=== PATIENT | male | born 1980 | race African-American/Black ===

== ENCOUNTER 2017-12-07 11:39 | Observation (INO) | payer SELFPAY ==
[2017-12-07] MEDS ORDERED: KETOROLAC TROMETHAMINE 60 MG/2 ML SDV IM ONE (12:31)
--- NOTE | 2017-12-07 12:33 | ER Document Report ---
ED Medical Screen (RME) - General Chief Complaint: Abdominal Swelling Stated Complaint: ABDOMINAL PAIN Time Seen by Provider: 12/07/17 12:31 Mode of Arrival: Ambulatory Information source: Patient Notes: This is a 37-year-old man who presents to the emergency room with chest wall pain and muscle aches and pains. 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 He states he has felt like his muscles have been locking up and he had some pain in his abdomen which precipitated him coming to the ER for evaluation today. Currently, he denies any nausea or abdominal pain. He does complain of muscle aches and pains. He denies any fever, near syncope, blood in the stool, shortness of breath. TRAVEL OUTSIDE OF THE [place] IN LAST 30 DAYS: No - Related Data Allergies/Adverse Reactions: No Known Allergies Allergy (Verified 12/07/17 11:43) Past Medical History - Social History Chew tobacco use (# tins/day): No Frequency of alcohol use: None Drug Abuse: None Pulmonary Medical History: Reports: Hx Asthma Renal/ Medical History: Denies: Hx Peritoneal Dialysis Psychiatric Medical History: Reports: Hx Anxiety, Hx Depression - anxiety - Immunizations Hx Diphtheria, Pertussis, Tetanus Vaccination: Yes - unknown Review of Systems - Review of Systems Notes: Review of systems: Constitutional: Denies fever, chills. EENT: Denies ear pain, sinus tenderness, throat pain, throat swelling. Cardiovascular: Denies chest pain, palpitations, dyspnea or edema. Respiratory: Denies wheezing, cough, hemoptysis. Abdomen: See H&P Genitourinary: Denies dysuria, pyuria, hematuria, flank pain. Musculoskeletal: See H&P Neurologic: Denies headache, photophobia, neck stiffness, weakness. Denies loss of bowel or bladder function. Denies saddle anesthesia. Skin: Denies rash, lesions. Physical Exam - Vital signs Vitals: Temp Pulse Resp BP Pulse Ox 98.7 F 91 16 124/86 H 100 12/07/17 11:51 12/07/17 11:51 12/07/17 11:51 12/07/17 11:51 02/16/18 11:51 Notes: Physical exam: GENERAL: 87-year-old man, alert and oriented 3, no acute distress HEAD: Atraumatic, normocephalic. EYES: Pupils equal round and reactive to light, extraocular movements intact, sclera anicteric, conjunctiva are normal. ENT: TMs normal, nares patent, oropharynx clear without exudates. Moist mucous membranes. NECK: Normal range of motion, supple without obvious mass or JVD. LUNGS: Breath sounds clear to auscultation bilaterally and equal. No wheezes rales or rhonchi. HEART: Regular rate and rhythm without murmurs, rubs or gallops. ABDOMEN: Soft, normoactive bowel sounds. No tenderness to palpation. No guarding, no rebound. No masses appreciated. EXTREMITIES: Normal range of motion, no pitting or edema. No clubbing or cyanosis. NEUROLOGICAL: Cranial nerves II through XII grossly intact. Normal speech, moving all extremities. PSYCH: Normal mood, normal affect. SKIN: Warm, Dry, normal turgor, no rashes or lesions noted. Course - Vital Signs Vital signs: Temp Pulse Resp BP Pulse Ox 98.7 F 91 16 124/86 H 100 12/07/17 11:51 12/07/17 11:51 12/07/17 11:51 12/07/17 11:51 12/07/17 11:51 - Laboratory Result Diagrams: 12/07/17 13:27 12/07/17 13:27 Laboratory results interpreted by me: 12/07/17 12/07/17 13:27 13:27 RBC 5.76 H RDW 14.8 H Sodium 132.4 L Chloride 94 L BUN 35 H Creatinine 1.94 H Est GFR ( Amer) 47 L Est GFR (Non-Af Amer) 39 L Calcium 10.7 H Direct Bilirubin 0.6 H AST 139 H Creatine Kinase 5564 H Total Protein 9.1 H Albumin 5.4 H Doctor's Discharge - Discharge Clinical Impression: Rhabdomyolysis, Acute kidney injury Condition: Stable Disposition: ADMITTED INPATIENT
--- NOTE | 2017-12-07 13:53 | RADIOLOGY REPORT (SQ) ---
EXAM DESCRIPTION: CHEST PA/LAT COMPLETED DATE/TIME: 12/07/2017 1:35 pm REASON FOR STUDY: chest wall pain COMPARISON: 08/11/2013 EXAM PARAMETERS: NUMBER OF VIEWS: two views TECHNIQUE: Digital Frontal and Lateral radiographic views of the chest acquired. RADIATION DOSE: NA LIMITATIONS: none FINDINGS: LUNGS AND PLEURA: No opacities, masses or pneumothorax. No pleural effusion. MEDIASTINUM AND HILAR STRUCTURES: No masses or contour abnormalities. HEART AND VASCULAR STRUCTURES: Heart normal size. No evidence for failure. BONES: No acute findings. HARDWARE: None in the chest. OTHER: No other significant finding. IMPRESSION: NO SIGNIFICANT RADIOGRAPHIC FINDING IN THE CHEST. TECHNICAL DOCUMENTATION: JOB ID: [id number] [employer] All Rights Reserved
[2017-12-07 13:56] LABS: ALANINE AMINOTRANSFERASE 66 U/L (21-72); ALBUMIN 5.4 g/dL (3.5-5.0); ALKALINE PHOSPHATASE 89 U/L (38-126); ANION GAP 15 (5-19); ASPARTATE AMINO TRANSFERASE 139 U/L (17-59); BILIRUBIN,DIRECT 0.6 mg/dL (0.0-0.4); BILIRUBIN,TOTAL 1.3 mg/dL (0.2-1.3); BLOOD UREA NITROGEN 35 mg/dL (7-20); CALCIUM 10.7 mg/dL (8.4-10.2); CARBON DIOXIDE 23 mmol/L (22-30); CHLORIDE 94 mmol/L (98-107); GLUCOSE 100 mg/dL (75-110); POTASSIUM 3.9 mmol/L (3.6-5.0); SODIUM 132.4 mmol/L (137-145); TOTAL PROTEIN 9.1 g/dL (6.3-8.2)
[2017-12-07 14:31] LABS: CREATINE KINASE 5564 U/L (55-170)
[2017-12-07 14:59] LABS: ABSOLUTE LYMPHOCYTES (AUTO) 2.2 10^3/uL (0.5-4.7); ABSOLUTE MONOCYTES (AUTO) 0.7 10^3/uL (0.1-1.4); ABSOLUTE NEUT (AUTO) 5.2 10^3/uL (1.7-8.2); BASOPHILS % (AUTO) 0.4 % (0-2); EOSINOPHILS % (AUTO) 0.2 % (0-6); HEMATOCRIT 47.1 % (37.9-51.0); HEMOGLOBIN 15.9 g/dL (13.5-17.0); LYMPHOCYTES % (AUTO) 26.7 % (13-45); MEAN CORPUSCULAR HEMOGLOBIN 27.7 pg (27.0-33.4); MEAN CORPUSCULAR HGB CONC 33.8 g/dL (32.0-36.0); MEAN CORPUSCULAR VOLUME 82 fl (80-97); MONOCYTES % (AUTO) 9.1 % (3-13); PLATELET COUNT 193 10^3/uL (150-450); RED BLOOD COUNT 5.76 10^6/uL (4.35-5.55); RED CELL DISTRIBUTION WIDTH 14.8 % (11.5-14.0); SEGMENTED NEUTROPHILS % (AUTO) 63.6 % (42-78); TOTAL CELLS COUNTED % (AUTO) 100 %; WHITE BLOOD COUNT 8.2 10^3/uL (4.0-10.5)
[2017-12-07] MEDS: RINGERS SOLUTION,LACTATED 1,000 ML IV PRN ×2 (15:02→16:26)
--- NOTE | 2017-12-07 15:18 | ER Document Report ---
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 He states that he has been at the job 11 hours each day for the past 3 days and is been profusely sweating. He presents today with intermittent abdominal wall muscle spasms, musculoskeletal myalgias. He denies chest pain, shortness of breath. He denies nausea or vomiting. He denies fever. TRAVEL OUTSIDE OF THE [place] IN LAST 30 DAYS: No - HPI Onset: Just prior to arrival Onset/Duration: Gradual Quality of pain: Burning, Dull Severity: Moderate Pain Level: 1 Associated symptoms: denies: Chest pain, Fever, Shortness of breath Exacerbated by: Denies Relieved by: Denies Similar symptoms previously: No Recently seen / treated by doctor: No - Related Data Allergies/Adverse Reactions: No Known Allergies Allergy (Verified 12/07/17 11:43) Past Medical History - General Information source: Patient - Social History Smoking Status: Current Every Day Smoker Cigarette use (# per day): Yes - Half pack per day Chew tobacco use (# tins/day): No Frequency of alcohol use: None Drug Abuse: None Lives with: Family Family History: None Patient has suicidal ideation: No Patient has homicidal ideation: No Pulmonary Medical History: Reports: Hx Asthma Renal/ Medical History: Denies: Hx Peritoneal Dialysis Psychiatric Medical History: Reports: Hx Anxiety, Hx Depression - anxiety Surgical Hx: Negative - Immunizations Hx Diphtheria, Pertussis, Tetanus Vaccination: Yes - unknown Review of Systems - Review of Systems Notes: Review of systems: Constitutional: Denies fever, chills. EENT: Denies ear pain, sinus tenderness, throat pain, throat swelling. Cardiovascular: Denies chest pain, palpitations, dyspnea or edema. Respiratory: Denies wheezing, cough, hemoptysis. Abdomen: Positive for abdominal wall spasms. Denies abdominal pain, nausea, vomiting, diarrhea. Denies BRBPR or melena. Genitourinary: Denies dysuria, pyuria, hematuria, flank pain. Musculoskeletal: See H&P Neurologic: Denies headache, photophobia, neck stiffness, weakness. Denies loss of bowel or bladder function. Denies saddle anesthesia. Skin: Denies rash, lesions. Physical Exam - Vital signs Vitals: Temp Pulse Resp BP Pulse Ox 98.7 F 91 16 124/86 H 100 12/07/17 11:51 12/07/17 11:51 12/07/17 11:51 12/07/17 11:51 12/07/17 11:51 Notes: Physical exam: GENERAL: 37-year-old man, alert and oriented 3, no acute distress HEAD: Atraumatic, normocephalic. EYES: Pupils equal round and reactive to light, extraocular movements intact, sclera anicteric, conjunctiva are normal. ENT: TMs normal, nares patent, oropharynx clear without exudates. Moist mucous membranes. NECK: Normal range of motion, supple without obvious mass or JVD. LUNGS: Breath sounds clear to auscultation bilaterally and equal. No wheezes rales or rhonchi. HEART: Regular rate and rhythm without murmurs, rubs or gallops. ABDOMEN: Soft, normoactive bowel sounds. No tenderness to palpation. No guarding, no rebound. No masses appreciated. EXTREMITIES: Normal range of motion, no pitting or edema. No clubbing or cyanosis. NEUROLOGICAL: Cranial nerves II through XII grossly intact. Normal speech, moving all extremities. PSYCH: Normal mood, normal affect. SKIN: Warm, Dry, normal turgor, no rashes or lesions noted. Course - Re-evaluation Re-evalutation: 12/07/17 15:32 Note: Patient was given Toradol on arrival for diffuse muscle pains. Follow-up labs do show some rhabdo, the plan would be to hold all nonsteroidals at this point. He is being treated with IV fluids. He does get some Ativan for muscle spasms. He could be treated with narcotics for pain if needed. The plan is to get an ultrasound of the kidneys and we are waiting for urine analysis. He will be brought into the hospital for rhabdomyolysis. - Vital Signs Vital signs: Temp Pulse Resp BP Pulse Ox 98.7 F 91 16 124/86 H 100 12/07/17 11:51 12/07/17 11:51 12/07/17 11:51 12/07/17 11:51 12/07/17 11:51 - Laboratory Result Diagrams: 12/07/17 13:27 12/07/17 13:27 Laboratory results interpreted by me: 12/07/17 12/07/17 13:27 13:27 RBC 5.76 H RDW 14.8 H Sodium 132.4 L Chloride 94 L BUN 35 H Creatinine 1.94 H Est GFR ( Amer) 47 L Est GFR (Non-Af Amer) 39 L Calcium 10.7 H Direct Bilirubin 0.6 H AST 139 H Creatine Kinase 5564 H Total Protein 9.1 H Albumin 5.4 H - Diagnostic Test Radiology reviewed: Image reviewed, Reports reviewed - Chest x-ray shows no infiltrates or effusions Discharge - Discharge Clinical Impression: Rhabdomyolysis, Acute kidney injury Condition: Stable Disposition: ADMITTED INPATIENT Admitting Provider: Hospitalist - Dr Salmon Unit Admitted: Medical Floor
[2017-12-07] MEDS ORDERED: LORAZEPAM INJ 2 MG/1 ML VIAL IV ONE (15:20)
[2017-12-07 16:20] LABS: APPEARANCE,URINE SLIGHTLY-CLOUDY; BILIRUBIN,URINE NEGATIVE (NEGATIVE); COLOR,URINE YELLOW; GLUCOSE, URINE NEGATIVE (NEGATIVE); KETONES,URINE 20 mg/dL (NEGATIVE); LEUKOCYTE ESTERASE,URINE NEGATIVE (NEGATIVE); NITRITE,URINE NEGATIVE (NEGATIVE); PROTEIN,URINE NEGATIVE (NEGATIVE); URINE SPECIFIC GRAVITY 1.015
[2017-12-07] MEDS ORDERED: OXYCODONE-ACETAMINOPHEN 5-325 MG TABLET PO PRN (16:24)
[2017-12-07] MEDS ORDERED: RINGERS SOLUTION,LACTATED 1,000 ML IV PRN (16:24)
[2017-12-07] MEDS ORDERED: IPRATROPIUM/ALBUTEROL 0.5-2.5 MG/3 ML AMPUL NEB PRN (16:24)
[2017-12-07] MEDS ORDERED: MAG HYDROX/AL HYDROX/SIMETH SUSP 30 ML UDCUP PO PRN (16:24)
--- NOTE | 2017-12-07 16:24 | PDOC H&P ---
History of Present Illness Admission Date/PCP: 12/07/17 15:55 Patient complains of: Abdominal cramping. History of Present Illness: EDOUARD ESCOBEDO is a 37 year old male with no noted past medical history. 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 The work is very labor intensive. He states that he has been sweating profusely. He describes increased thirst over the last 2 days. His urine has gotten darker in color and he is urinating less frequently. He started to develop headache over the last 3-4 days. He describes the headache as a pressure over his temples. He also has some mild pressure in his right ear. The patient started to have abdominal pain and cramping 2 days ago but that got worse this morning. This morning he was doubled over in pain and unable to get up. That is what prompted him to come into the emergency department. He is also had cramping in his legs and arms over the last 2 days. He has not had any vomiting. Of note, the patient did receive Toradol in the emergency department. Past Medical History Pulmonary Medical History: Reports: Asthma Psychiatric Medical History: Reports: Depression - anxiety Past Surgical History Past Surgical History: Reports: None Social History Lives with: Family Smoking Status: Current Every Day Smoker Frequency of Alcohol Use: Rare Hx Recreational Drug Use: Yes Drugs: Marijuana Hx Prescription Drug Abuse: No - Advance Directive Resuscitation Status: Full Code Family History Family History: None Parental Family History Reviewed: Yes Children Family History Reviewed: Yes Sibling(s) Family History Reviewed.: Yes - No relevant family history Medication/Allergy Home Medications: Acyclovir [Acyclovir 400 mg Tablet] 400 mg PO TID #30 tablet 04/13/14 Allergies/Adverse Reactions: No Known Allergies Allergy (Verified 12/07/17 11:43) Review of Systems Constitutional: PRESENT: headache(s), weakness Eyes: ABSENT: as per HPI, visual disturbances, other Ears: PRESENT: as per HPI Nose, Mouth, and Throat: ABSENT: as per HPI, headache(s), mouth pain, sore throat, vertigo, other Breasts: ABSENT: as per HPI, other Cardiovascular: ABSENT: as per HPI, chest pain, dyspnea on exertion, edema, orthropnea, palpitations, other Respiratory: ABSENT: as per HPI, cough, dyspnea, hemoptysis, sputum, other Gastrointestinal: PRESENT: abdominal pain Genitourinary: ABSENT: as per HPI, difficulty urinating, dysuria, hematuria, nocturia, other Musculoskeletal: PRESENT: as per HPI Integumentary: PRESENT: diaphoresis. ABSENT: as per HPI, erythema, lesions, pruritus, rash, wounds, other Neurological: ABSENT: as per HPI, abnormal gait, abnormal movements, abnormal speech, confusion, convulsions, dizziness, focal weakness, frequent falls, lack of coordination, memory loss, numbness, paresthesias, restless legs, syncope, tingling, tremor(s), vertigo, weakness, other Psychiatric: ABSENT: as per HPI, anxiety, depression, hallucinations, homidical ideation, suicidal ideation, other Endocrine: PRESENT: polydipsia. ABSENT: as per HPI, cold intolerance, flushing , heat intolerance, menstrual abnormalities, polyphagia, polyuria, other Hematologic/Lymphatic: ABSENT: as per HPI, easy bleeding, easy bruising, lymphadenopathy, other Allergic/Immunologic: ABSENT: as per HPI, seasonal rhinorrhea, other Physical Exam Vital Signs: Temp Pulse Resp BP Pulse Ox 97.7 F 85 18 137/85 H 100 12/07/17 15:28 12/07/17 15:28 12/07/17 15:28 12/07/17 15:28 12/07/17 15:28 Additional comments: The patient is a well developed well nourished black male. He is not in any distress. His cognition and mentation are appropriate. He follows all commands. His facial appearance is unremarkable. His lungs do demonstrate a few scattered wheezes only posteriorly. His cardiac exam is regular without murmurs, gallops or rubs. The abdomen is soft and flat. Bowel sounds are noted. He does not have guarding or rebound noted and there are no hernias or masses present. The lower extremities are somewhat diaphoretic. The patient is noted to have an excessive amount of clothing on. He has full socks on. He has sweatpants under his fatigues. However, there are no acute skin lesions or rashes. Results Impressions: Chest X-Ray 12/07/17 12:34 IMPRESSION: NO SIGNIFICANT RADIOGRAPHIC FINDING IN THE CHEST. Assessment & Plan - Diagnosis (1) Acute kidney injury (nontraumatic) Is this a current diagnosis for this admission?: Yes Plan: The patient will be admitted for IV hydration. The acute kidney injury is likely secondary to dehydration from profuse sweating at work. However, the patient also has hypertension noted on his vital signs. His laboratory indices indicate sodium and volume depletion but this should lead to relative hypotension. The patient may have untreated hypertension. The patient also received Toradol in the emergency department which could aggravate the renal injury. (2) Rhabdomyolysis Is this a current diagnosis for this admission?: Yes Plan: Continue IV fluids. (3) Hypercalcemia Is this a current diagnosis for this admission?: Yes Plan: Should correct with IV fluids. If hypercalcemia persists and certainly additional workup for hyperparathyroidism is needed. (4) Elevated AST (SGOT) Is this a current diagnosis for this admission?: Yes Plan: Patient will be getting an abdominal ultrasound to rule out ureteral obstruction. It is unclear why the patient has an isolated elevated AST. Other than repeating it I do not think any additional workup is needed at this time. (5) Wheezing Is this a current diagnosis for this admission?: Yes Plan: The patient has a history of childhood asthma. He occasionally will have chest pain upon inspiration but he states that this only occurs when he is smoking. Therefore, he has been counseled to quit smoking. If his symptoms persist then further evaluation should be undertaken. (6) Nicotine abuse Is this a current diagnosis for this admission?: Yes Plan: Patient has been counseled to quit smoking. He only smokes an occasional cigar and I do not think that a nicotine patch as needed. (7) Hypertension Is this a current diagnosis for this admission?: Yes - Time Time Spent: 30 to 50 Minutes - Inpatient Certification Medical Necessity: Need For IV Fluids - Plan Summary Plan Summary: Patient will be admitted to observation for IV fluids. He will be reevaluated in the morning. Repeat labs will be sent for the morning as well.
--- NOTE | 2017-12-07 17:20 | RADIOLOGY REPORT (SQ) ---
EXAM DESCRIPTION: [employer] COMPLETED DATE/TIME: 12/07/2017 4:54 pm REASON FOR STUDY: r/o hydronephrosis COMPARISON: CT FROM 02/20/2011 TECHNIQUE: Dynamic and static grayscale images acquired of the kidneys and bladder and recorded on P ACS. Additional selected color Doppler and spectral images recorded. LIMITATIONS: None. FINDINGS: RIGHT KIDNEY: Normal size. Normal echogenicity. No solid or suspicious masses. No h ydronephrosis. No calcifications. LEFT KIDNEY: Normal size. Normal echogenicity. No solid or suspicious masses. No hydronephrosi s. No calcifications. BLADDER: No masses. OTHER FINDINGS: No other significant finding. IMPRESSION: NORMAL RENAL AND BLADDER ULTRASOUND. TECHNICAL DOCUMENTATION: JOB ID: [id number] [employer]- All Rights Reserved
[2017-12-07] MEDS: FAMOTIDINE 20 MG TABLET PO SCH (21:43)
[2017-12-08 07:41] LABS: ALANINE AMINOTRANSFERASE 58 U/L (21-72); ALBUMIN 3.7 g/dL (3.5-5.0); ALKALINE PHOSPHATASE 59 U/L (38-126); ANION GAP 8 (5-19); ASPARTATE AMINO TRANSFERASE 90 U/L (17-59); BILIRUBIN,DIRECT 0.4 mg/dL (0.0-0.4); BILIRUBIN,TOTAL 0.6 mg/dL (0.2-1.3); BLOOD UREA NITROGEN 26 mg/dL (7-20); CALCIUM 9.3 mg/dL (8.4-10.2); CARBON DIOXIDE 24 mmol/L (22-30); CHLORIDE 104 mmol/L (98-107); GLUCOSE 94 mg/dL (75-110); POTASSIUM 3.8 mmol/L (3.6-5.0); SODIUM 135.6 mmol/L (137-145); TOTAL PROTEIN 6.2 g/dL (6.3-8.2)
[2017-12-08 07:51] LABS: CREATINE KINASE 2747 U/L (55-170)
[2017-12-08] MEDS: FAMOTIDINE 20 MG TABLET PO SCH (10:54)
--- NOTE | 2017-12-08 13:19 | PDOC DISCHARGE SUMMARY ---
General - Admit/Disc Date/PCP Admission Date/Primary Care Provider: 12/07/17 15:55 Discharge Date: 12/08/17 - Additional Information Resuscitation Status: Full Code Discharge Diet: Regular Discharge Activity: Balance Activity w/Rest, Other - OK to return to work on Mondya as long as you feel back to normal History of Present Illness Patient complains of: abdominal pain and cramping, headache History of Present Illness: EDOUARD ESCOBEDO is a 37 year old male with no noted past medical history. 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 The work is very labor intensive. He states that he has been sweating profusely. He describes increased thirst over the last 2 days. His urine has gotten darker in color and he is urinating less frequently. He started to develop headache over the last 3-4 days. He describes the headache as a pressure over his temples. He also has some mild pressure in his right ear. The patient started to have abdominal pain and cramping 2 days ago but that got worse this morning. This morning he was doubled over in pain and unable to get up. That is what prompted him to come into the emergency department. He is also had cramping in his legs and arms over the last 2 days. He has not had any vomiting. Of note, the patient did receive Toradol in the emergency department. Hospital Course Hospital Course: admitted to hospitalist service, iv fluid hydratiom started for NICHOLAS and rhabdomyolysis. This am renal function almost returned to normal, creatinine normal and BUN slightly elevated. CK level down to about 2000. Pts urine is clear, his abd cramping very mild and resolving, headaceh resolved. Eating and drinking well, ambulating without difficulty, feels back to normal aside from the residual abd cramping. CBC normal. Electrolytes unconcerning, vitals normal. Physical Exam Vital Signs: Temp Pulse Resp BP Pulse Ox 98.4 F 82 16 113/65 100 12/08/17 08:10 12/08/17 08:10 12/08/17 08:10 12/08/17 08:10 12/08/17 08:10 Intake & Output 12/07/17 12/08/17 12/09/17 06:59 06:59 06:59 Intake Total 1110 Balance 1110 Weight 78.7 kg General appearance: PRESENT: no acute distress, cooperative, well-developed, well-nourished Head exam: PRESENT: atraumatic, normocephalic Eye exam: PRESENT: conjunctiva pink Ear exam: PRESENT: normal external ear exam. ABSENT: bleeding Mouth exam: PRESENT: moist Neck exam: PRESENT: full ROM Respiratory exam: PRESENT: clear to auscultation tolu, unlabored Cardiovascular exam: PRESENT: RRR. ABSENT: systolic murmur Pulses: PRESENT: normal radial pulses GI/Abdominal exam: PRESENT: normal bowel sounds, soft. ABSENT: distended, guarding, tenderness Rectal exam: PRESENT: deferred Extremities exam: ABSENT: calf tenderness, pedal edema Neurological exam: PRESENT: alert, altered, awake, oriented to person, oriented to place, oriented to situation, CN II-XII grossly intact Psychiatric exam: PRESENT: appropriate affect. ABSENT: agitated, anxious Skin exam: PRESENT: dry, warm. ABSENT: rash Results Laboratory Results: 12/08/17 06:38 12/08/17 06:38 Sodium 135.6 L Potassium 3.8 Chloride 104 Carbon Dioxide 24 Anion Gap 8 BUN 26 H Creatinine 1.07 Est GFR ( Amer) > 60 Est GFR (Non-Af Amer) > 60 Glucose 94 Calcium 9.3 Magnesium 2.0 Total Bilirubin 0.6 AST 90 H ALT 58 Alkaline Phosphatase 59 Total Protein 6.2 L Albumin 3.7 12/08/17 06:38 Creatine Kinase 2747 H Impressions: Chest X-Ray 12/07/17 12:34 IMPRESSION: NO SIGNIFICANT RADIOGRAPHIC FINDING IN THE CHEST. Renal Ultrasound 12/07/17 15:16 IMPRESSION: NORMAL RENAL AND BLADDER ULTRASOUND. Qualifiers PATEINT BEING DISCHARGED WITH ANY OF THE FOLLOWING DIAGNOSIS?: No Plan Discharge Plan: DC to home with instructions to stay hydrated and return to medical care with concerning symptoms. Time Spent: Less than 30 Minutes
[2017-12-08 14:36] VITALS: BP 116/66
== END 2017-12-08 14:45 | disposition home or self-care (01) ==
LOC: ER 11:39 → INTOOBSV 15:55 → EH 15:55 → 2N 18:37
PROVIDERS: ADMIT Family Medicine; ATTEND Family Medicine
DX: N17.9 Acute kidney failure, unspecified (principal); M62.82 Rhabdomyolysis; R51 Headache; F17.210 Nicotine dependence, cigarettes, uncomplicated; H93.8X1 Other specified disorders of right ear; E83.52 Hypercalcemia; R74.0 Nonspecific elevation of levels of transaminase and lactic acid dehydrogenase [LDH]; R06.2 Wheezing; I10 Essential (primary) hypertension; Z87.09 Personal history of other diseases of the respiratory system
CPT/HCPCS: 36415; 71046; 76775; 80048; 80053; 80076; 81001; 82550; 83735; 85025; 96372; 96374; 99284; G0378; J1885; J2060; J7120

== ENCOUNTER 2018-01-22 21:24 | Emergency (ER) | payer SELFPAY ==
--- NOTE | 2018-01-22 22:41 | ER Document Report ---
ED Medical Screen (RME) - General Chief Complaint: Flank Pain Stated Complaint: FLANK PAIN Time Seen by Provider: 01/22/18 22:35 Notes: 37-year-old male, chief complaint of pain in his mid to left upper abdomen, he states that it is a cramping pain that he felt the last time that he had rhabdomyolysis which he was admitted for recently. He denies any supplements, nausea or vomiting, fever or chills. He denies any daily medications. He denies any surgeries. He denies alcohol. TRAVEL OUTSIDE OF THE [place] IN LAST 30 DAYS: No - Related Data Allergies/Adverse Reactions: No Known Allergies Allergy (Verified 12/07/17 11:43) Past Medical History - Social History Chew tobacco use (# tins/day): No Frequency of alcohol use: Social Drug Abuse: None Pulmonary Medical History: Reports: Hx Asthma Renal/ Medical History: Denies: Hx Peritoneal Dialysis Psychiatric Medical History: Reports: Hx Anxiety, Hx Depression - anxiety - Immunizations Hx Diphtheria, Pertussis, Tetanus Vaccination: Yes - unknown History of Influenza Vaccine for 07/2017 - 12/2017 Season: Refused Physical Exam - Vital signs Vitals: Temp Pulse Resp BP Pulse Ox 98 F 86 16 114/60 98 01/22/18 22:23 01/22/18 22:23 01/22/18 22:23 01/22/18 22:23 01/22/18 22:23 - Abdominal Tenderness: Tender - Mild tenderness in the epigastric area and left upper quadrant, remaining abdomen is benign, exam limited by sitting position Course - Vital Signs Vital signs: Temp Pulse Resp BP Pulse Ox 98 F 86 16 114/60 98 01/22/18 22:23 01/22/18 22:23 01/22/18 22:23 01/22/18 22:23 01/22/18 22:23
[2018-01-22 23:21] LABS: ABSOLUTE BASOPHILS # (AUTO) 0.1 10^3/uL (0.0-0.2); ABSOLUTE EOSINOPHILS # (AUTO) 0.1 10^3/uL (0.0-0.6); ABSOLUTE LYMPHOCYTES (AUTO) 3.3 10^3/uL (0.5-4.7); ABSOLUTE MONOCYTES (AUTO) 0.5 10^3/uL (0.1-1.4); ABSOLUTE NEUT (AUTO) 3.1 10^3/uL (1.7-8.2); BASOPHILS % (AUTO) 0.8 % (0-2); EOSINOPHILS % (AUTO) 1.1 % (0-6); HEMATOCRIT 38.5 % (37.9-51.0); HEMOGLOBIN 12.6 g/dL (13.5-17.0); MEAN CORPUSCULAR HEMOGLOBIN 27.4 pg (27.0-33.4); MEAN CORPUSCULAR HGB CONC 32.7 g/dL (32.0-36.0); MEAN CORPUSCULAR VOLUME 84 fl (80-97); PLATELET COUNT 178 10^3/uL (150-450); RED CELL DISTRIBUTION WIDTH 15.6 % (11.5-14.0); SEGMENTED NEUTROPHILS % (AUTO) 44.1 % (42-78); TOTAL CELLS COUNTED % (AUTO) 100 %
[2018-01-22 23:28] LABS: APPEARANCE,URINE SLIGHTLY-CLOUDY; BILIRUBIN,URINE SMALL (NEGATIVE); COLOR,URINE AMBER; GLUCOSE, URINE NEGATIVE (NEGATIVE); KETONES,URINE NEGATIVE (NEGATIVE); LEUKOCYTE ESTERASE,URINE TRACE (NEGATIVE); NITRITE,URINE NEGATIVE (NEGATIVE); PROTEIN,URINE 30 mg/dL (NEGATIVE); URINE SPECIFIC GRAVITY 1.026
[2018-01-22 23:29] LABS: ALANINE AMINOTRANSFERASE 25 U/L (21-72); ALKALINE PHOSPHATASE 49 U/L (38-126); ANION GAP 8 (5-19); ASPARTATE AMINO TRANSFERASE 22 U/L (17-59); BILIRUBIN,DIRECT 0.1 mg/dL (0.0-0.4); BILIRUBIN,TOTAL 0.4 mg/dL (0.2-1.3); BLOOD UREA NITROGEN 10 mg/dL (7-20); CALCIUM 9.6 mg/dL (8.4-10.2); CARBON DIOXIDE 29 mmol/L (22-30); CHLORIDE 105 mmol/L (98-107); CREATINE KINASE 165 U/L (55-170); GLUCOSE 118 mg/dL (75-110); POTASSIUM 4.3 mmol/L (3.6-5.0); SODIUM 141.6 mmol/L (137-145); TOTAL PROTEIN 5.8 g/dL (6.3-8.2)
[2018-01-23] MEDS ORDERED: LIDOCAINE 5% (700 MG) TRANSDERMAL ADH..PATCH TP ONE (00:46)
[2018-01-23] MEDS ORDERED: ALBUTEROL SULFATE HFA (90 MCG/PUFF) 200 PUFF/8.5 GM MDI IH ONE (00:46)
[2018-01-23] MEDS ORDERED: IBUPROFEN 600 MG TABLET PO ONE (00:46)
--- NOTE | 2018-01-23 00:47 | ER Document Report ---
ED General - General Chief Complaint: Flank Pain Stated Complaint: FLANK PAIN Time Seen by Provider: 01/22/18 22:35 Notes: Patient is a 37-year-old male with a past medical history of rhabdomyolysis several weeks ago, current everyday smoker, no additional chronic medical problems who presents with 1 week of intermittent left lower rib pain. He describes this as an aching, stabbing pain worsened by coughing or moving. He has not tried anything to improve the pain. He states that he is concerned as he had similar symptoms when he had to be hospitalized for rhabdomyolysis. He has not followed with his primary care doctor regarding today's concerns. He denies any abdominal pain, vomiting, diarrhea or shortness of breath. No history of DVT or pulmonary embolus. No history of chemotherapy use. TRAVEL OUTSIDE OF THE [place] IN LAST 30 DAYS: No - Related Data Allergies/Adverse Reactions: No Known Allergies Allergy (Verified 12/07/17 11:43) Past Medical History - General Information source: Patient - Social History Smoking Status: Current Every Day Smoker Chew tobacco use (# tins/day): No Smoking Education Provided: Yes - Smoking cessation counseling was provided for 4 minutes at the bedside Frequency of alcohol use: Social Drug Abuse: None Lives with: Family Family History: Reviewed & Not Pertinent Patient has suicidal ideation: No Patient has homicidal ideation: No Pulmonary Medical History: Reports: Hx Asthma Renal/ Medical History: Denies: Hx Peritoneal Dialysis Psychiatric Medical History: Reports: Hx Anxiety, Hx Depression - anxiety - Immunizations Hx Diphtheria, Pertussis, Tetanus Vaccination: Yes - unknown Review of Systems - Review of Systems Notes: Constitutional: Negative for fever. HENT: Negative for sore throat. Eyes: Negative for visual changes. Cardiovascular: Negative for chest pain. Respiratory: Negative for shortness of breath. Gastrointestinal: Negative for abdominal pain, vomiting or diarrhea. Genitourinary: Negative for dysuria. Musculoskeletal: Positive for left lower rib pain Skin: Negative for rash. Neurological: Negative for headaches, weakness or numbness. 10 point ROS negative except as marked above and in HPI. Physical Exam - Vital signs Vitals: Temp Pulse Resp BP Pulse Ox 98 F 86 16 114/60 98 01/22/18 22:23 01/22/18 22:23 01/22/18 22:23 01/22/18 22:23 01/22/18 22:23 Interpretation: Normal Notes: PHYSICAL EXAMINATION: GENERAL: Well-appearing, well-nourished and in no acute distress. HEAD: Atraumatic, normocephalic. EYES: Pupils equal round and reactive to light, extraocular movements intact, sclera anicteric, conjunctiva are normal. ENT: nares patent, oropharynx clear without exudates. Moist mucous membranes. NECK: Normal range of motion, supple without lymphadenopathy LUNGS: Breath sounds clear to auscultation bilaterally and equal. No wheezes rales or rhonchi. HEART: Regular rate and rhythm without murmurs Chest wall: Pain on palpation of the left lower ribs ABDOMEN: Soft, nontender, normoactive bowel sounds. No guarding, no rebound. No masses appreciated. EXTREMITIES: Normal range of motion, no pitting or edema. No cyanosis. NEUROLOGICAL: No focal neurological deficits. Moves all extremities spontaneously and on command. PSYCH: Normal mood, normal affect. SKIN: Warm, Dry, normal turgor, no rashes or lesions noted. Course - Re-evaluation Re-evalutation: 01/23/18 00:44 Patient presents with left lower intercostal rib pain reproducible on examination. He has no shortness of breath or pleuritic pain, vital signs within normal limits and he is PERC criteria negative. Patient reports that his main concern is that he had similar pain when he was hospitalized with rhabdomyolysis several weeks ago. His labs today however do not demonstrate any evidence of this diagnosis. Patient is otherwise extremely well in appearance. He does not have any left-sided abdominal pain and has no abdominal pain whatsoever on examination. His laboratories are unremarkable. The remainder of his physical exam is likewise unremarkable. The patient is requesting albuterol inhaler as he reports that he sometimes wheezes and coughs at home and feels that this may be what has caused this pain. Will place a Lidoderm patch over the affected area, provide an albuterol inhaler for home, recommended NSAID therapy, and I also provided smoking cessation counseling. At this time will discharge with return precautions and follow-up recommendations. Verbal discharge instructions given a the bedside and opportunity for questions given. Medication warnings reviewed. Patient is in agreement with this plan and has verbalized understanding of return precautions and the need for primary care follow-up in the next 24-72 hours. - Vital Signs Vital signs: Temp Pulse Resp BP Pulse Ox 98.0 F 81 16 110/59 L 97 01/23/18 00:56 01/23/18 00:56 01/23/18 00:56 01/23/18 00:56 01/23/18 00:56 - Laboratory Result Diagrams: 01/22/18 22:54 01/22/18 22:54 Laboratory results interpreted by me: 01/22/18 01/22/18 01/22/18 22:54 22:54 22:54 Hgb 12.6 L RDW 15.6 H Lymphocytes % 47.0 H Glucose 118 H Total Protein 5.8 L Urine Protein 30 H Urine Bilirubin SMALL H Urine Urobilinogen 4.0 H Ur Leukocyte Esterase TRACE H Discharge - Discharge Clinical Impression: Tobacco abuse, Rib pain on left side, Wheezing Condition: Good Disposition: HOME, SELF-CARE Additional Instructions: Your chest wall pain is due to inflammation of your ribs. This pain can last for up to 6 weeks. It is very important that you continue to take purposeful deep breaths. For your pain: Continue to take ibuprofen 600 mg every 6 hours or Tylenol 1000 mg every 6 hours. Apply local lidocaine to the area per bottle instructions. There is a product sold [id number] called "Aspercreme with lidocaine" that you can use for this purpose. Please follow-up with your primary care doctor in the next 2-3 days. Return to the emergency department immediately if you develop worsening shortness of breath, increased pain, begin coughing blood, pass out, or have any other symptoms that are worrisome to you. Forms: Smoking Cessation Education
[2018-01-23 00:57] VITALS: BP 110/59
== END 2018-01-23 01:07 | disposition home or self-care (01) ==
LOC: ER 21:24
DX: R07.81 Pleurodynia (principal); F17.200 Nicotine dependence, unspecified, uncomplicated; J45.909 Unspecified asthma, uncomplicated; Z71.6 Tobacco abuse counseling
CPT/HCPCS: 99406; 99284; 36415; 82550; 83690; 85025; 80053; 81001; J3490

== ENCOUNTER 2018-10-05 09:00 | Emergency (ER) | payer SELFPAY ==
[2018-10-05] MEDS ORDERED: NORMAL SALINE 1000 ML 1,000 ML IV ONE (09:33)
[2018-10-05] MEDS ORDERED: KETOROLAC TROMETHAMINE INJ/PF 30 MG/1 ML SDV IV ONE (09:33)
--- NOTE | 2018-10-05 09:35 | ER Document Report ---
HPI - HPI Patient complains to provider of: Cough, sore throat Time Seen by Provider: 10/05/18 09:33 Onset: Other - 2 days Onset/Duration: Persistent Quality of pain: Achy Pain Level: 3 Context: Patient presents complaining of sore throat and cough for the past 2 days. Patient reports sinus congestion and generalized body aches. Patient complains of right-sided headache. Patient does complain of low back pain as well. Patient denies any urinary symptoms. Patient also complains of left testicular tenderness. Patient denies any penile discharge, problems with erection, or pain during intercourse. Associated Symptoms: Body/muscle aches, Chills, Nonproductive cough, Rhinnorhea , Sore throat, Other - Left testicular tenderness. denies: Earache, Fever Exacerbated by: Denies Relieved by: Denies Similar symptoms previously: No Recently seen / treated by doctor: No - ROS ROS below otherwise negative: Yes Systems Reviewed and Negative: Yes All other systems reviewed and negative - CONSTITUTIONAL Constitutional: REPORTS: Chills - EENT EENT: REPORTS: Sore Throat, Nasal Drainage-Clear - RESPIRATORY Respiratory: REPORTS: Coughing - GASTROINTESTINAL Gastrointestinal: DENIES: Nausea, Patient vomiting - URINARY Urinary: DENIES: Dysuria, Urgency, Frequency - MUSCULOSKELETAL Musculoskeletal: REPORTS: Back Pain - DERM Skin Color: Normal Skin Problems: None Past Medical History - General Information source: Patient - Social History Smoking Status: Never Smoker Frequency of alcohol use: None Drug Abuse: None Occupation: Foodservice Family History: Reviewed & Not Pertinent Pulmonary Medical History: Reports: Hx Asthma Renal/ Medical History: Denies: Hx Peritoneal Dialysis Psychiatric Medical History: Reports: Hx Anxiety, Hx Depression - anxiety Surgical Hx: Negative - Immunizations Hx Diphtheria, Pertussis, Tetanus Vaccination: Yes - unknown Vertical Provider Document - CONSTITUTIONAL Agree With Documented VS: Yes Exam Limitations: No Limitations General Appearance: WD/WN, No Apparent Distress - INFECTION CONTROL TRAVEL OUTSIDE OF THE [place] IN LAST 30 DAYS: No - HEENT HEENT: Atraumatic, Normocephalic, Pharyngeal Tenderness, Pharyngeal Erythema. negative: Pharyngeal Exudate - NECK Neck: Lymphadenopathy-Right. negative: Lymphadenopathy-Left Notes: No meningismus - RESPIRATORY Respiratory: Breath Sounds Normal, No Respiratory Distress, Chest Non-Tender. negative: Rales, Rhonchi, Wheezing - CARDIOVASCULAR Cardiovascular: Regular Rate, Regular Rhythm, No Murmur - GI/ABDOMEN Gastrointestinal: Abdomen Soft - REPRODUCTIVE Male Genitalia: Abnormal Inspection - Left testicular tenderness, left epididymal tenderness, no inguinal adenopathy, no abnormal skin rash or lesions - BACK Back: Abnormal Inspection - Lower lumbar paraspinal tenderness. negative: CVA Tenderness-Right, CVA Tenderness-Left - MUSCULOSKELETAL/EXTREMETIES Musculoskeletal/Extremeties: MAEW, FROM, Non-Tender - NEURO Level of Consciousness: Awake, Alert, Appropriate Motor/Sensory: No Motor Deficit - DERM Integumentary: Warm, Dry, No Rash Course - Re-evaluation Re-evalutation: 10/05/18 Patient with positive rapid strep test, will treat with Bicillin LA. No potential airway compromise. Patient nontoxic in appearance. Patient with hydrocele and varicocele noted on ultrasound, no concern for torsion at this time. Patient encouraged to follow-up with urology for further evaluation. - Vital Signs Vital signs: Temp Pulse Resp BP Pulse Ox 99.0 F 92 14 106/62 98 10/05/18 09:14 10/05/18 09:14 10/05/18 09:14 10/05/18 09:14 10/05/18 09:14 - Laboratory Laboratory results interpreted by me: 10/05/18 11:39 Labs- Entire Visit 10/05/18 10/05/18 09:48 09:48 Urine Color TAW[place]NA Urine Appearance SLIGHTLY-CLOUDY Urine pH 5.0 Ur Specific [place] 1.028 Urine Protein 100 H Urine Glucose (UA) NEGATIVE Urine Ketones TRACE H Urine Blood NEGATIVE Urine Nitrite NEGATIVE Urine Bilirubin MODERATE H Urine Urobilinogen 4.0 H Ur Leukocyte Esterase TRACE H Urine WBC (Auto) 5 Urine RBC (Auto) 3 Squamous Epi Cells Auto 1 Urine Mucus (Auto) MANY Urine Ascorbic Acid 40 H Group A Strep Rapid POSITIVE - Diagnostic Test Radiology reviewed: Reports reviewed Discharge - Discharge Clinical Impression: Strep throat, Varicocele, Testicular pain, left Hydrocele Qualifiers: Hydrocele type: unspecified Qualified Code(s): N43.3 - Hydrocele, unspecified Condition: Stable Disposition: HOME, SELF-CARE Instructions: Hydrocele ([facility]), Myalagia (Muscle Pain) ([facility]), Strep Throat ([facility]) Additional Instructions: Return immediately for any new or worsening symptoms Followup with your primary care provider, call tomorrow to make a followup appointment Follow-up with a urologist for further evaluation of your hydrocele and varicocele [facility] Address: [address] [place] [address], [place] [address] Prescriptions: Doxycycline Hyclate 100 mg PO BID #20 capsule Naproxen [Naprosyn 250 Nmg Tablet] 1 tab PO BID #14 tablet Forms: Return to Work Referrals: [facility] [Provider Group] - Follow up as needed
--- NOTE | 2018-10-05 09:56 | RADIOLOGY REPORT (SQ) ---
EXAM DESCRIPTION: CHEST 2 VIEWS COMPLETED DATE/TIME: 10/05/2018 9:46 am REASON FOR STUDY: cough COMPARISON: 12/07/2017 EXAM PARAMETERS: NUMBER OF VIEWS: two views TECHNIQUE: Digital Frontal and Lateral radiographic views of the chest acquired. RADIATION DOSE: NA LIMITATIONS: none FINDINGS: LUNGS AND PLEURA: No opacities, masses or pneumothorax. No pleural effusion. MEDIASTINUM AND HILAR STRUCTURES: No masses or contour abnormalities. HEART AND VASCULAR STRUCTURES: Heart normal size. No evidence for failure. BONES: No acute findings. HARDWARE: None in the chest. OTHER: No other significant finding. IMPRESSION: NO ACUTE RADIOGRAPHIC FINDING IN THE CHEST. TECHNICAL DOCUMENTATION: JOB ID: [id number] [employer]- All Rights Reserved Reading location - IP/workstation name: [email or web address]
[2018-10-05 10:22] LABS: APPEARANCE,URINE SLIGHTLY-CLOUDY; BILIRUBIN,URINE MODERATE (NEGATIVE); COLOR,URINE AMBER; GLUCOSE, URINE NEGATIVE (NEGATIVE); KETONES,URINE TRACE mg/dL (NEGATIVE); LEUKOCYTE ESTERASE,URINE TRACE (NEGATIVE); NITRITE,URINE NEGATIVE (NEGATIVE); PROTEIN,URINE 100 mg/dL (NEGATIVE); URINE SPECIFIC GRAVITY 1.028
[2018-10-05] MEDS ORDERED: PENICILLIN G BENZATHINE 1.2 MILLION UNIT/2 ML DISP.SYRIN IM ONE (10:43)
[2018-10-05] MEDS ORDERED: CEFTRIAXONE INJ 250 MG VIAL IV ONE (10:43)
--- NOTE | 2018-10-05 11:35 | RADIOLOGY REPORT (SQ) ---
EXAM DESCRIPTION: U/S SCROTUM W/DOPPLER COMPLETED DATE/TIME: 10/05/2018 11:13 am REASON FOR STUDY: L testicular pain COMPARISON: None. TECHNIQUE: Static and realtime salmon scale imaging of the scrotum and testes. Selected color Doppler and spectral images recorded to document blood flow. LIMITATIONS: None. FINDINGS: RIGHT: TESTICLE: Normal size. 2 mm calcification. Normal blood flow. No mass. EPIDIDYMIS: Normal. HYDROCELE OR VARICOCELE: No. HERNIA OR EXTRA-TESTICULAR MASS: No. OTHER: No other significant finding. LEFT: TESTICLE: Normal size. 3 calcifications, the largest 2 mm. Normal blood flow. No mass. EPIDIDYMIS: Normal. HYDROCELE OR VARICOCELE: Small varicocele and hydrocele. HERNIA OR EXTRA-TESTICULAR MASS: No. OTHER: No other significant finding. IMPRESSION: Small left hydrocele and varicocele. No evidence of testicular mass or torsion. TECHNICAL DOCUMENTATION: JOB ID: [id number] [employer]- All Rights Reserved Reading location - IP/workstation name: [email or web address]
[2018-10-05 11:56] LABS: CHLAM PCR NOT DETECTED (NOT DETECT); GON PCR NOT DETECTED (NOT DETECT)
[2018-10-05 12:10] VITALS: BP 108/50
== END 2018-10-05 12:10 | disposition home or self-care (01) ==
LOC: ER 09:00
DX: J02.0 Streptococcal pharyngitis (principal); I86.1 Scrotal varices; N50.812 Left testicular pain; N43.3 Hydrocele, unspecified; R05 Cough; J02.9 Acute pharyngitis, unspecified; M79.10 Myalgia, unspecified site; R09.81 Nasal congestion; M54.5 Low back pain; J45.909 Unspecified asthma, uncomplicated
CPT/HCPCS: 99284; 96372; 96361; 96375; 96365; 87880; 81001; 87491; 87591; 71046; 76870; 93976; J1885; J0561; J7030; J0696

== ENCOUNTER 2018-11-20 07:33 | Emergency (ER) | payer SELFPAY ==
[2018-11-20 08:27] LABS: A TYPE INFLUENZA AG NEGATIVE (NEGATIVE); B INFLUENZA AG NEGATIVE (NEGATIVE)
--- NOTE | 2018-11-20 08:36 | ER Document Report ---
HPI - HPI Time Seen by Provider: 11/20/18 07:44 Pain Level: 2 Notes: Patient is an otherwise healthy 38-year-old male with complaint of body aches, cold sweats, dizziness, cough, sneezing and nasal congestion. He reports all symptoms started 2 days ago. Patient reports that he thinks he has the flu. - REPRODUCTIVE Reproductive: DENIES: : Past Medical History - General Information source: Patient - Social History Smoking Status: Current Every Day Smoker Family History: Reviewed & Not Pertinent Patient has suicidal ideation: No Patient has homicidal ideation: No Pulmonary Medical History: Reports: Hx Asthma Renal/ Medical History: Denies: Hx Peritoneal Dialysis Psychiatric Medical History: Reports: Hx Anxiety, Hx Depression - anxiety - Immunizations Hx Diphtheria, Pertussis, Tetanus Vaccination: Yes - unknown Vertical Provider Document - CONSTITUTIONAL Notes: PHYSICAL EXAMINATION: GENERAL: Well-appearing, well-nourished and in no acute distress. HEAD: Atraumatic, normocephalic. EYES: Pupils equal round and reactive to light, extraocular movements intact, sclera anicteric, conjunctiva are normal. ENT: Nares patent with clear rhinorrhea, oropharynx clear without exudates. Moist mucous membranes. NECK: Normal range of motion, supple without lymphadenopathy LUNGS: Breath sounds clear to auscultation bilaterally and equal. No wheezes rales or rhonchi. HEART: Regular rate and rhythm without murmurs ABDOMEN: Soft, nontender, nondistended abdomen. No guarding, no rebound. No masses appreciated. Musculoskeletal: Normal range of motion, no pitting or edema. No cyanosis. NEUROLOGICAL: Cranial nerves grossly intact. Normal speech, normal gait. Normal sensory, motor exams PSYCH: Normal mood, normal affect. SKIN: Warm, Dry, normal turgor, no rashes or lesions noted. - INFECTION CONTROL TRAVEL OUTSIDE OF THE [place] IN LAST 30 DAYS: No Course - Re-evaluation Re-evalutation: 11/20/18 08:35 Physical examination is unremarkable. Influenza testing is negative. Likely viral upper respiratory illness. - Vital Signs Vital signs: Temp Pulse Resp BP Pulse Ox 98.1 F 85 18 126/74 H 100 11/20/18 07:45 11/20/18 07:45 11/20/18 07:45 11/20/18 07:45 11/20/18 07:45 Discharge - Discharge Clinical Impression: Viral upper respiratory illness Condition: Stable Disposition: HOME, SELF-CARE Additional Instructions: Your symptoms are most likely due to a viral infection it should resolve over the next 7-14 days. You should take [id number] guanfacine per bottle instructions to help thin the mucus. For nasal congestion: I would recommend that you get [id number] oxymetazoline also known is afrin. Use only per bottle instructions and be sure to never use this for more than 3 days if you can develop severe rebound congestion. You may also use tylenol or ibuprofen as needed for aches and thorat discomfort. Please be sure to drink plenty of fluids and get rest. Return to the emergency department he began having difficulty breathing, chest pain, persistent vomiting, or any other symptoms that are concerning to you. Forms: Return to Work
[2018-11-20 08:41] VITALS: BP 122/72
== END 2018-11-20 08:41 | disposition home or self-care (01) ==
LOC: ER 07:33
DX: J06.9 Acute upper respiratory infection, unspecified (principal); B97.89 Other viral agents as the cause of diseases classified elsewhere; R61 Generalized hyperhidrosis; R05 Cough; R42 Dizziness and giddiness; R09.81 Nasal congestion; J45.909 Unspecified asthma, uncomplicated; J34.89 Other specified disorders of nose and nasal sinuses; F17.200 Nicotine dependence, unspecified, uncomplicated
CPT/HCPCS: 87804; 99283